=== PATIENT | female | born 1990 | race Caucasian/White ===

== ENCOUNTER 2020-07-24 12:44 | Emergency (ER) | payer SELFPAY ==
[~2020-07-24] VITALS: Ht 154.9 cm; Wt 88.6 kg
[2020-07-24 13:00] VITALS: BP 123/80; TEMP 97.6
[2020-07-24 14:26] VITALS: PULSE 80
== END 2020-07-24 14:27 | disposition home or self-care (01) ==
LOC: COL.ER 12:44
DX: S86.912A Strain of unspecified muscle(s) and tendon(s) at lower leg level, left leg, initial encounter (principal); F17.290 Nicotine dependence, other tobacco product, uncomplicated; Z88.1 Allergy status to other antibiotic agents; X50.1XXA Overexertion from prolonged static or awkward postures, initial encounter
CPT/HCPCS: L1830; L1846